=== PATIENT | female | born 1970 | race Caucasian/White ===

== ENCOUNTER 2017-06-23 15:21 | Inpatient (IN) | payer BC, MEDICAID, SELFPAY ==
[~2017-06-23] VITALS: Ht 170.2 cm; Wt 95.5 kg
[~2017-06-23 15:21] MED LIST: HYDR-569 PO; NAPR-1154 PO
[2017-06-23] MEDS ORDERED: aspirin 81mg tab.chew PO ONE (15:35)
[2017-06-23] MEDS ORDERED: morphine 4 MG/ML inj SYRINge IV ONE ×2 (16:00→20:45)
[2017-06-23 16:07] LABS: BASOPHILS % (AUTO) 0.3 % (0-1); EOSINOPHILS # (AUTO) 0.2 X10'3 (0-0.9); EOSINOPHILS % (AUTO) 1.5 % (0-6); HEMATOCRIT 42.5 % (35.0-45.0); HEMOGLOBIN 14.6 g/dl (12.0-16.0); LYMPHOCYTES # (AUTO) 1.6 X10'3 (1.1-4.8); LYMPHOCYTES % (AUTO) 12.4 % (21-51); MEAN CORPUSCULAR HEMOGLOBIN 32.4 PG (27.0-31.0); MEAN CORPUSCULAR HGB CONC 34.5 % (33.0-36.5); MEAN CORPUSCULAR VOLUME 94.1 FL (78-98); MEAN PLATELET VOLUME 8.2 FL (7.4-10.4); MONOCYTES # (AUTO) 0.6 X10'3 (0-0.9); MONOCYTES % (AUTO) 4.8 % (2-12); NEUTROPHILS # (AUTO) 10.3 X10'3 (1.8-7.7); PLATELET COUNT 261 X10'3 (140-440); RED BLOOD COUNT 4.52 X10'6 (4.20-5.60); RED CELL DISTRIBUTION WIDTH 15.4 % (11.5-14.5); WHITE BLOOD COUNT 12.7 X10'3 (4.5-11.0)
[2017-06-23 16:20] LABS: D-DIMER 0.67 MG/L FEU (0-0.50); PARTIAL THROMBOPLASTIN TIME 27 SECONDS (22-32); PROTHROMBIN TIME 9.9 SECONDS (9.0-12.0)
[2017-06-23 16:28] LABS: ALANINE AMINOTRANSFERASE 134 U/L (12-78); ALBUMIN/GLOBULIN RATIO 1.1 (1.1-1.5); ALKALINE PHOSPHATASE 116 IU/L (46-116); ANION GAP 12 (8-16); ASPARTATE AMINO TRANSFERASE 277 U/L (10-37); BILIRUBIN,TOTAL 0.9 MG/DL (0.1-1.0); BLOOD UREA NITROGEN 17 MG/DL (7-18); BUN/CREATININE RATIO 13.5 (6.6-38.0); CALCIUM 9.2 MG/DL (8.5-10.1); CHLORIDE 103 MMOL/L (99-107); CREATININE 1.26 MG/DL (0.40-0.90); GLUCOSE 112 MG/DL (70-104); POTASSIUM 3.4 MMOL/L (3.5-5.1); SODIUM 142 MMOL/L (135-145); TOTAL CARBON DIOXIDE 27.3 MMOL/L (24-32); TOTAL PROTEIN 7.7 G/DL (6.4-8.2); eGFR 45 ML/MIN
[2017-06-23] MEDS ORDERED: iohexol 350MG/ML 100ml bottle IV ONE (17:04)
[2017-06-23] MEDS ORDERED: metoprolol tartrate 1mg/ml inj IV ONE (17:20)
[2017-06-23] MEDS ORDERED: LEVO200T PO (18:10)
[2017-06-23] MEDS: nitroGLYCERIN 0.4mg SUBLingual tab SL PRN ×2 (20:11→20:40)
[2017-06-23] MEDS ORDERED: cloNIDine 0.1 mg tablet PO ONE (20:45)
[2017-06-23] MEDS ORDERED: bisacodyl 10mg suppository rectal RC PRN (22:50)
[2017-06-23] MEDS ORDERED: potassium Cl 20 mEq SR tablet PO PRN ×2 (22:50)
[2017-06-23] MEDS ORDERED: magnesium 2GM in 50ml NS 50 ML IV PRN (22:50)
[2017-06-23] MEDS ORDERED: magnesium 4gm in 100ml NS 100 ML IV PRN (22:50)
[2017-06-23] MEDS ORDERED: potassium Cl 40MEQ/NS 500ml 500 ML IV PRN ×2 (22:50)
[2017-06-23] MEDS ORDERED: morphine 4 MG/ML inj SYRINge IV PRN (22:50)
[2017-06-23] MEDS ORDERED: ipratropium/albuterol 3ml nebule NEB PRN (22:50)
[2017-06-23 23:12] LABS: LIPASE 391 U/L (73-393)
[2017-06-23 23:13] LABS: ETHANOL < 0.010 GM/DL (0.0-0.010)
[2017-06-24] MEDS: normal saline 1000ml 1,000 ML IV SCH ×3 (00:43→20:05)
[2017-06-24] MEDS: heparin, porcine 5000 units/ml vial SQ SCH ×3 (00:47→16:00)
[2017-06-24] MEDS: morphine 4 MG/ML inj SYRINge IV PRN ×3 (00:47→17:22)
[2017-06-24] MEDS: ondansetron/PF 4mg/2ml inj IV PRN ×2 (04:56→21:54)
[2017-06-24 05:11] LABS: BASOPHILS % (AUTO) 0.1 % (0-1); EOSINOPHILS # (AUTO) 0.1 X10'3 (0-0.9); HEMATOCRIT 43.3 % (35.0-45.0); HEMOGLOBIN 14.9 g/dl (12.0-16.0); LYMPHOCYTES % (AUTO) 12.2 % (21-51); MEAN CORPUSCULAR HEMOGLOBIN 32.1 PG (27.0-31.0); MEAN CORPUSCULAR HGB CONC 34.5 % (33.0-36.5); MEAN CORPUSCULAR VOLUME 93.1 FL (78-98); MEAN PLATELET VOLUME 8.1 FL (7.4-10.4); MONOCYTES # (AUTO) 0.3 X10'3 (0-0.9); MONOCYTES % (AUTO) 3.9 % (2-12); NEUTROPHILS # (AUTO) 6.5 X10'3 (1.8-7.7); NEUTROPHILS % (AUTO) 82.8 % (42-75); PLATELET COUNT 268 X10'3 (140-440); RED BLOOD COUNT 4.66 X10'6 (4.20-5.60); RED CELL DISTRIBUTION WIDTH 15.3 % (11.5-14.5); WHITE BLOOD COUNT 7.8 X10'3 (4.5-11.0)
[2017-06-24 05:29] LABS: ANION GAP 11 (8-16); BLOOD UREA NITROGEN 15 MG/DL (7-18); BUN/CREATININE RATIO 13.4 (6.6-38.0); CHLORIDE 105 MMOL/L (99-107); CREATININE 1.12 MG/DL (0.40-0.90); GLUCOSE 122 MG/DL (70-104); SODIUM 142 MMOL/L (135-145)
[2017-06-24 05:30] LABS: ALANINE AMINOTRANSFERASE 742 U/L (12-78); ALBUMIN 3.7 G/DL (3.4-5.0); ALBUMIN/GLOBULIN RATIO 0.9 (1.1-1.5); ALKALINE PHOSPHATASE 189 IU/L (46-116); ASPARTATE AMINO TRANSFERASE 995 U/L (10-37); BILIRUBIN,TOTAL 2.2 MG/DL (0.1-1.0); CHOL/HDL RATIO 4.6 (0.00-4.99); CHOLESTEROL 247 MG/DL (0-200); HDL CHOLESTEROL 54 MG/DL (35-60); LDL CHOLESTEROL 163 MG/DL (50-100); TOTAL PROTEIN 7.7 G/DL (6.4-8.2); TRIGLYCERIDES 144 MG/DL (20-135); eGFR 52 ML/MIN
[2017-06-24 05:34] LABS: POTASSIUM 3.9 MMOL/L (3.5-5.1)
[2017-06-24] MEDS: hydrALAZINE 20mg/ml inj. IV PRN ×2 (05:57→20:08)
[2017-06-24] MEDS: K and/or MAG REPLACEMENT MC SCH (06:33)
[2017-06-24] MEDS: levoTHYROXINE 100mcg tablet PO SCH (07:15)
[2017-06-24 09:11] LABS: LIPASE 357 U/L (73-393)
[2017-06-24] MEDS ORDERED: proCHLORperazine 10 MG/2 ml inj IV PRN (09:35)
[2017-06-24] MEDS ORDERED: NORMAL SALINE IV ONE ×2 (10:00→16:45)
[2017-06-24] MEDS ORDERED: SINCALIDE IV ONE ×2 (10:00→16:45)
[2017-06-24 11:30] VITALS: BP 164/83
[2017-06-24 16:48] VITALS: BP 156/78
[2017-06-24 20:00] VITALS: BP 177/98
[2017-06-24] MEDS: piperacillin/tazo 3.375gm/50ml 50 ML IV SCH (20:05)
[2017-06-24 21:30] VITALS: BP 142/76
[2017-06-24] MEDS: ketorolac tromethamine 15mg/ml inj. IV PRN (21:54)
[2017-06-25] VITALS (17 sets, daily range): BP systolic 115–166; BP diastolic 64–104
[2017-06-25] MEDS: piperacillin/tazo 3.375gm/50ml 50 ML IV SCH ×4 (02:49→20:00)
[2017-06-25] MEDS: ketorolac tromethamine 15mg/ml inj. IV PRN (04:02)
[2017-06-25 05:40] LABS: BASOPHILS % (AUTO) 0.3 % (0-1); EOSINOPHILS # (AUTO) 0.1 X10'3 (0-0.9); HEMOGLOBIN 13.5 g/dl (12.0-16.0); LYMPHOCYTES # (AUTO) 1.4 X10'3 (1.1-4.8); LYMPHOCYTES % (AUTO) 9.9 % (21-51); MEAN CORPUSCULAR HEMOGLOBIN 32.2 PG (27.0-31.0); MEAN CORPUSCULAR HGB CONC 34.7 % (33.0-36.5); MEAN PLATELET VOLUME 8.7 FL (7.4-10.4); MONOCYTES # (AUTO) 0.5 X10'3 (0-0.9); MONOCYTES % (AUTO) 3.9 % (2-12); NEUTROPHILS # (AUTO) 11.7 X10'3 (1.8-7.7); NEUTROPHILS % (AUTO) 84.9 % (42-75); PLATELET COUNT 223 X10'3 (140-440); RED BLOOD COUNT 4.19 X10'6 (4.20-5.60); RED CELL DISTRIBUTION WIDTH 15.6 % (11.5-14.5); WHITE BLOOD COUNT 13.8 X10'3 (4.5-11.0)
[2017-06-25] MEDS: normal saline 1000ml 1,000 ML IV SCH ×2 (05:58→14:46)
[2017-06-25 06:02] LABS: ALANINE AMINOTRANSFERASE 748 U/L (12-78); ALBUMIN 3.1 G/DL (3.4-5.0); ALKALINE PHOSPHATASE 258 IU/L (46-116); ANION GAP 12 (8-16); ASPARTATE AMINO TRANSFERASE 451 U/L (10-37); BILIRUBIN,TOTAL 1.8 MG/DL (0.1-1.0); BLOOD UREA NITROGEN 13 MG/DL (7-18); BUN/CREATININE RATIO 10.7 (6.6-38.0); CHLORIDE 106 MMOL/L (99-107); CREATININE 1.21 MG/DL (0.40-0.90); GLUCOSE 96 MG/DL (70-104); MAGNESIUM 1.8 MG/DL (1.5-2.4); POTASSIUM 3.1 MMOL/L (3.5-5.1); SODIUM 141 MMOL/L (135-145); TOTAL CARBON DIOXIDE 22.9 MMOL/L (24-32); TOTAL PROTEIN 6.3 G/DL (6.4-8.2); eGFR 47 ML/MIN
[2017-06-25] MEDS: K and/or MAG REPLACEMENT MC SCH (08:00)
[2017-06-25] MEDS: heparin, porcine 5000 units/ml vial SQ SCH ×3 (08:00→15:09)
[2017-06-25] MEDS ORDERED: morphine 4 MG/ML inj SYRINge ONE (09:10)
[2017-06-25] MEDS ORDERED: SINCALIDE IV ONE (10:00)
[2017-06-25] MEDS ORDERED: NORMAL SALINE IV ONE (10:00)
[2017-06-25] MEDS: levoTHYROXINE 100mcg tablet PO SCH (11:01)
[2017-06-25] MEDS ORDERED: morphine 4 MG/ML inj SYRINge IV ONE (12:00)
[2017-06-25] MEDS: morphine 4 MG/ML inj SYRINge IV PRN ×3 (13:35→21:01)
[2017-06-25] MEDS ORDERED: ceFAZolin 1000mg inj ONE (15:24)
[2017-06-25] MEDS ORDERED: BUPIVAcaine/PF 2.5 mg/ml (0.25%) 30ml vial ONE (15:25)
[2017-06-25 16:12] LABS: PARTIAL THROMBOPLASTIN TIME 26 SECONDS (22-32); PROTHROMBIN TIME 10.1 SECONDS (9.0-12.0)
[2017-06-25] MEDS ORDERED: desflurane 240ml liquid inh. IH ONE (19:00)
[2017-06-25] MEDS ORDERED: famotidine/PF 10 mg/ml inj IV ONE (19:08)
[2017-06-25] MEDS ORDERED: fentaNYL/PF 50MCG/1 ML 2ML syringe ONE (19:10)
[2017-06-25] MEDS ORDERED: midazolam 2 mg/2 ml injection ONE (19:11)
[2017-06-25] MEDS ORDERED: LIDOcaine 2% 5ml jelly ONE (19:15)
[2017-06-25] MEDS: lactobacillus rhamnosus 10,000 MMU CELLS/CAPSULE PO SCH (20:00)
[2017-06-25] MEDS ORDERED: LIDOcaine 2% (20mg/ml) 5ml vial ONE (20:28)
[2017-06-25] MEDS ORDERED: neostigmine methylsulfate 1 MG/ML 10ml vial ONE (20:28)
[2017-06-25] MEDS ORDERED: propofol inj 20 ML IV ONE (20:28)
[2017-06-25] MEDS ORDERED: ondansetron/PF 4mg/2ml inj ONE (20:28)
[2017-06-25] MEDS ORDERED: glycopyrrolate 0.2mg/ml inj ONE (20:28)
[2017-06-25] MEDS ORDERED: ondansetron/PF 4mg/2ml inj IV PRN ×2 (20:30→20:35)
[2017-06-25] MEDS ORDERED: ringers solution, lacted 1,000 ML IV SCH (20:32)
[2017-06-25] MEDS ORDERED: meperidine/PF 50mg/ml syringe IV PRN ×3 (20:35)
[2017-06-25] MEDS ORDERED: proCHLORperazine 10 MG/2 ml inj IV PRN (20:35)
[2017-06-25] MEDS ORDERED: morphine 4 MG/ML inj SYRINge IV PRN ×2 (20:35)
[2017-06-25] MEDS ORDERED: acetaminophen 1,000mg/100ml IV 100 ML IV PRN (20:40)
[2017-06-25] MEDS ORDERED: ketorolac trometh. 30mg/ml inj. IV ONE (20:40)
[2017-06-25] MEDS ORDERED: meperidine/PF 25mg/ml syringe ONE (21:05)
[2017-06-26] VITALS (8 sets, daily range): BP systolic 128–159; BP diastolic 79–93
[2017-06-26] MEDS: gabapentin 400mg capsule PO SCH ×4 (01:06→23:30)
[2017-06-26] MEDS: heparin, porcine 5000 units/ml vial SQ SCH ×4 (01:09→23:31)
[2017-06-26] MEDS: morphine 4 MG/ML inj SYRINge IV PRN ×4 (01:12→19:41)
[2017-06-26] MEDS: piperacillin/tazo 3.375gm/50ml 50 ML IV SCH ×4 (03:46→19:40)
[2017-06-26] MEDS: ketorolac tromethamine 15mg/ml inj. IV PRN ×2 (03:48→21:26)
[2017-06-26] MEDS: normal saline 1000ml 1,000 ML IV SCH ×3 (03:53→16:41)
[2017-06-26] MEDS: levoTHYROXINE 100mcg tablet PO SCH (07:35)
[2017-06-26] MEDS: lactobacillus rhamnosus 10,000 MMU CELLS/CAPSULE PO SCH ×2 (07:35→19:40)
[2017-06-26 07:44] LABS: BASOPHILS % (AUTO) 0.2 % (0-1); EOSINOPHILS % (AUTO) 0 % (0-6); HEMATOCRIT 36.7 % (35.0-45.0); HEMOGLOBIN 12.6 g/dl (12.0-16.0); LYMPHOCYTES # (AUTO) 0.7 X10'3 (1.1-4.8); LYMPHOCYTES % (AUTO) 5.2 % (21-51); MEAN CORPUSCULAR HGB CONC 34.3 % (33.0-36.5); MEAN CORPUSCULAR VOLUME 93.3 FL (78-98); MEAN PLATELET VOLUME 8.3 FL (7.4-10.4); MONOCYTES # (AUTO) 0.5 X10'3 (0-0.9); MONOCYTES % (AUTO) 3.8 % (2-12); NEUTROPHILS # (AUTO) 11.5 X10'3 (1.8-7.7); NEUTROPHILS % (AUTO) 90.8 % (42-75); PLATELET COUNT 227 X10'3 (140-440); RED BLOOD COUNT 3.94 X10'6 (4.20-5.60); RED CELL DISTRIBUTION WIDTH 14.9 % (11.5-14.5); WHITE BLOOD COUNT 12.6 X10'3 (4.5-11.0)
[2017-06-26 08:00] LABS: ALANINE AMINOTRANSFERASE 462 U/L (12-78); ALBUMIN 2.8 G/DL (3.4-5.0); ALBUMIN/GLOBULIN RATIO 0.8 (1.1-1.5); ALKALINE PHOSPHATASE 222 IU/L (46-116); ANION GAP 9 (8-16); ASPARTATE AMINO TRANSFERASE 128 U/L (10-37); BILIRUBIN,TOTAL 0.8 MG/DL (0.1-1.0); BLOOD UREA NITROGEN 15 MG/DL (7-18); BUN/CREATININE RATIO 13.2 (6.6-38.0); CALCIUM 8.1 MG/DL (8.5-10.1); CHLORIDE 105 MMOL/L (99-107); CREATININE 1.14 MG/DL (0.40-0.90); GLUCOSE 100 MG/DL (70-104); MAGNESIUM 1.8 MG/DL (1.5-2.4); SODIUM 138 MMOL/L (135-145); TOTAL PROTEIN 6.2 G/DL (6.4-8.2); eGFR 51 ML/MIN
[2017-06-26] MEDS: K and/or MAG REPLACEMENT MC SCH (08:00)
[2017-06-26 13:17] LABS: HBSAG SCREEN Negative (Negative); HEP A AB, IGM Negative (Negative); HEP B CORE AB, IGM Negative (Negative); HEPATITIS C ANTIBODY <0.1 s/co ratio (0.0-0.9)
[2017-06-27] VITALS: BP 135/72
[2017-06-27] MEDS: morphine 4 MG/ML inj SYRINge IV PRN (00:48)
[2017-06-27] MEDS: piperacillin/tazo 3.375gm/50ml 50 ML IV SCH ×3 (01:46→13:46)
[2017-06-27] MEDS: normal saline 1000ml 1,000 ML IV SCH (01:48)
[2017-06-27 05:30] LABS: BASOPHILS % (AUTO) 0.3 % (0-1); EOSINOPHILS # (AUTO) 0.2 X10'3 (0-0.9); EOSINOPHILS % (AUTO) 2.1 % (0-6); HEMATOCRIT 34.1 % (35.0-45.0); HEMOGLOBIN 11.6 g/dl (12.0-16.0); LYMPHOCYTES # (AUTO) 2.4 X10'3 (1.1-4.8); LYMPHOCYTES % (AUTO) 27.8 % (21-51); MEAN CORPUSCULAR HEMOGLOBIN 31.7 PG (27.0-31.0); MEAN CORPUSCULAR HGB CONC 33.9 % (33.0-36.5); MEAN CORPUSCULAR VOLUME 93.6 FL (78-98); MEAN PLATELET VOLUME 8.4 FL (7.4-10.4); MONOCYTES # (AUTO) 0.5 X10'3 (0-0.9); MONOCYTES % (AUTO) 6.3 % (2-12); NEUTROPHILS # (AUTO) 5.6 X10'3 (1.8-7.7); NEUTROPHILS % (AUTO) 63.5 % (42-75); PLATELET COUNT 229 X10'3 (140-440); RED BLOOD COUNT 3.65 X10'6 (4.20-5.60); RED CELL DISTRIBUTION WIDTH 15.2 % (11.5-14.5); WHITE BLOOD COUNT 8.8 X10'3 (4.5-11.0)
[2017-06-27 05:42] LABS: ALANINE AMINOTRANSFERASE 308 U/L (12-78); ALBUMIN 2.7 G/DL (3.4-5.0); ALBUMIN/GLOBULIN RATIO 0.8 (1.1-1.5); ALKALINE PHOSPHATASE 166 IU/L (46-116); ANION GAP 8 (8-16); ASPARTATE AMINO TRANSFERASE 57 U/L (10-37); BILIRUBIN,TOTAL 0.5 MG/DL (0.1-1.0); BLOOD UREA NITROGEN 13 MG/DL (7-18); BUN/CREATININE RATIO 10.9 (6.6-38.0); CHLORIDE 108 MMOL/L (99-107); CREATININE 1.19 MG/DL (0.40-0.90); GLUCOSE 99 MG/DL (70-104); MAGNESIUM 1.9 MG/DL (1.5-2.4); POTASSIUM 3.5 MMOL/L (3.5-5.1); SODIUM 141 MMOL/L (135-145); TOTAL CARBON DIOXIDE 25.1 MMOL/L (24-32); TOTAL PROTEIN 6.1 G/DL (6.4-8.2); eGFR 48 ML/MIN
[2017-06-27] MEDS: lactobacillus rhamnosus 10,000 MMU CELLS/CAPSULE PO SCH (07:46)
[2017-06-27] MEDS: levoTHYROXINE 100mcg tablet PO SCH (07:46)
[2017-06-27] MEDS: gabapentin 400mg capsule PO SCH ×2 (07:46→16:00)
[2017-06-27] MEDS: heparin, porcine 5000 units/ml vial SQ SCH ×2 (07:47→16:00)
[2017-06-27 07:58] VITALS: BP 165/96
[2017-06-27] MEDS: K and/or MAG REPLACEMENT MC SCH (08:00)
[2017-06-27] MEDS: ketorolac tromethamine 15mg/ml inj. IV PRN (10:40)
[2017-06-27 11:00] VITALS: BP 179/97
[2017-06-27] MEDS ORDERED: TRAM50TA2 PO (15:57)
== END 2017-06-27 19:22 | disposition home or self-care (01) | DRG 263 ==
LOC: ER 15:21 → ED HOLD 22:46 → SUR 3N 06-24 16:37
PROVIDERS: ADMIT Family Medicine; ATTEND Family Medicine
PROC: B32T1ZZ Computerized Tomography (CT Scan) of Left Pulmonary Artery using Low Osmolar Contrast (ICD-10-PCS; 2017-06-23)
PROC: B3201ZZ Computerized Tomography (CT Scan) of Thoracic Aorta using Low Osmolar Contrast (ICD-10-PCS; 2017-06-23)
PROC: B32S1ZZ Computerized Tomography (CT Scan) of Right Pulmonary Artery using Low Osmolar Contrast (ICD-10-PCS; 2017-06-23)
PROC: CF2YYZZ Tomographic (Tomo) Nuclear Medicine Imaging of Hepatobiliary System and Pancreas using Other Radionuclide (ICD-10-PCS; 2017-06-25)
PROC: 0FT44ZZ Resection of Gallbladder, Percutaneous Endoscopic Approach (ICD-10-PCS; principal; 2017-06-25 19:00)
DX: K80.00 Calculus of gallbladder with acute cholecystitis without obstruction (principal); K72.00 Acute and subacute hepatic failure without coma; I72.8 Aneurysm of other specified arteries; I20.0 Unstable angina; I16.0 Hypertensive urgency; E03.9 Hypothyroidism, unspecified; R94.5 Abnormal results of liver function studies; F17.210 Nicotine dependence, cigarettes, uncomplicated; E87.6 Hypokalemia; I10 Essential (primary) hypertension; Z80.0 Family history of malignant neoplasm of digestive organs; Z80.3 Family history of malignant neoplasm of breast; Z90.710 Acquired absence of both cervix and uterus; Z88.5 Allergy status to narcotic agent; Z79.899 Other long term (current) drug therapy
CPT/HCPCS: 36415; 71045; 71275; 74181; 76700; 78227; 80053; 80061; 80074; 80320; 83605; 83690; 83735; 83880; 84145; 84443; 84484; 85025; 85379; 85610; 85730; 87040; 87070; 93005; 93306; 94760; 96374; 96375; 96376; 99285; A6251; A6253; A6449; A7000; A9537; J0131; J0360; J0690; J0780; J1644; J1885; J2001; J2175; J2250; J2270; J2405; J2543; J2704; J2710; J3010; J3480; J3490; J7030; J7120; Q9967

== ENCOUNTER 2018-06-08 09:22 | Inpatient (IN) | payer BC, MEDICAID | END 2018-06-11 11:05 | disposition home or self-care (01) | LOC: ER 09:22 → ED HOLD 11:39 → PCU 3S 12:30 ==

== ENCOUNTER 2018-06-11 22:29 | Emergency (ER) | payer BC ==
[~2018-06-11] VITALS: Ht 170.2 cm; Wt 100.0 kg
[~2018-06-11 22:29] MED LIST changes: +HYDR-4069 PO; -HYDR-569 PO; +LEVO125T PO; +METO25TA6 PO; -NAPR-1154 PO; +NICO-631 TD; +NIFE90TA44 PO
[2018-06-11] MEDS ORDERED: LORazepam 1 MG tablet PO ONE (23:10)
[2018-06-11 23:35] VITALS: BP 186/101
== END 2018-06-11 23:42 | disposition home or self-care (01) ==
LOC: ER 22:31
DX: I10 Essential (primary) hypertension (principal); Z88.5 Allergy status to narcotic agent; Z79.899 Other long term (current) drug therapy
CPT/HCPCS: 99283

== ENCOUNTER 2018-11-18 16:35 | Emergency (ER) | payer BC ==
[~2018-11-18] VITALS: Ht 170.2 cm; Wt 95.5 kg
[~2018-11-18 16:35] MED LIST changes: -NICO-631 TD
--- NOTE | 2018-11-18 16:53 | NUR ---
RELIEVING RN FOR LUNCH, DR TORRES AT BEDSIDE TO EVAL PT, PT IS 48YO FEMALE C/O RT SIDED BODY PAIN STARTED AT WORK AT 1400, AMB WITH STEADY GAIT, HAD NUCLEAR STRESS DONE YESTERDAY, HEAD "POUNDING", PT IS GCS 15, ALERT AND ORIENTED, RESP EVEN AND UNLABORED
[2018-11-18] MEDS ORDERED: FURO-150 PO (17:06)
[2018-11-18] MEDS ORDERED: POTA10TA19 PO (17:06)
[2018-11-18] MEDS ORDERED: METO-384 PO (17:06)
[2018-11-18] MEDS ORDERED: NIFE60TA80 PO (17:06)
[2018-11-18] MEDS ORDERED: HYDR100T27 PO (17:06)
[2018-11-18] MEDS ORDERED: ERGO500041 PO (17:06)
[2018-11-18] MEDS ORDERED: metoclopramide 5 mg/ml inj IM ONE (17:20)
[2018-11-18] MEDS ORDERED: diphenhydrAMINE 50 mg/ml inj IM ONE (17:20)
[2018-11-18] MEDS ORDERED: LORazepam 2 mg/ml vial IM ONE (17:20)
[2018-11-18 19:17] VITALS: BP 152/103
== END 2018-11-18 20:42 | disposition home or self-care (01) ==
LOC: ER 16:36
DX: R51 Headache (principal); R20.2 Paresthesia of skin; I10 Essential (primary) hypertension; Z88.5 Allergy status to narcotic agent; Z79.899 Other long term (current) drug therapy
CPT/HCPCS: 70450; 96372; 99284; J1200; J2060; J2765